=== PATIENT | female | born 1950 | race Hispanic/Latino ===

== ENCOUNTER 2022-02-10 08:54 | Emergency (ER) | payer MEDICARE ==
[~2022-02-10] VITALS: Ht 162.6 cm; Wt 77.1 kg
[~2022-02-10 08:54] MED LIST: ASPIR 8181 MG PO; ENALAPRIL MALEA20 MG PO; GLIPIZIDE-METF1 EAC2 PO; GLIPIZIDE5 MG PO; NOVOLIN N100 UNIT/1 SQ; OMEPRAZOLE40 MG PO; SIMVASTATIN20 MG PO; VASOTEC10 MG PO
[2022-02-10] MEDS ORDERED: NEURONTIN100 MG PO (09:07)
[2022-02-10 09:33] VITALS: BP 140/82
== END 2022-02-10 09:45 | disposition home or self-care (01) ==
LOC: ER 09:00
DX: M54.42 Lumbago with sciatica, left side (principal); E78.00 Pure hypercholesterolemia, unspecified; K21.9 Gastro-esophageal reflux disease without esophagitis
CPT/HCPCS: 99282